=== PATIENT | male | born 1945 | race Caucasian/White ===

== ENCOUNTER 2017-03-24 10:36 | Emergency (ER) | payer MEDICARE, OTHER ==
--- NOTE | ~2017-03-24 | ER ---
PATIENT'S NAME: NANCY WISE [facility] AGE: 71 Y [address] ROOM: [place], [place] [address] LOCATION: ED ADMIT DATE: 03/24/2017 ER/Outpatient Report DISCHARGE DATE: 03/24/2017 FAMILY PHYSICIAN: PHYSICIAN, NO ATTENDING PHYSICIAN: Beatrice Zaragoza TIME OF PATIENT ARRIVAL: 1036 hours. TIME OF PATIENT EVALUATION: 1100 hours. CHIEF COMPLAINT: Headache. HISTORY OF PRESENT ILLNESS: This is a 71-year-old male who presents to the ER. He states that he has been having radiating burning pain at the back of his left side of his scalp. The patient states he noticed it approximately 4 days ago. He states, around the same time, he was on his horse, and she did a 360-degree spin to get away from a cow. He states that then he had some neck discomfort from that. He did follow up with a chiropractor in which he had some adjustments done. Now, his neck feels fine, but he is still having the pain that shoots burning pains up the left side of his scalp. He has had no fever or chills. No cough or shortness of breath. No visual disturbance. The patient also noticed a rash to the left side of his chest, and he has a few to the back of his shoulder that he just assumed that he got bit by some bugs. He noticed the rash a day to 2 days ago. He denies any other problems at this time. ALLERGIES: NO KNOWN ALLERGIES. MEDICATIONS: Please see medication list, nurse's notes. PAST MEDICAL HISTORY: Hypertension. SOCIAL HISTORY: Drinks alcohol rarely. REVIEW OF SYSTEMS: A 10-point review of systems was completed and was negative with the exception of those discussed in the HPI. PATIENT'S NAME: NANCY WISE [facility] AGE: 71 Y [address] ROOM: [place], [place] [address] LOCATION: ED ADMIT DATE: 03/24/2017 ER/Outpatient Report DISCHARGE DATE: 03/24/2017 FAMILY PHYSICIAN: PHYSICIAN, ANITHA ATTENDING PHYSICIAN: Beatrice Zaragoza PHYSICAL EXAMINATION: VITAL SIGNS: Weight 87.7 kg taken, blood pressure is 144/93, pulse 72, respirations 16, temperature 96.2 degrees tympanically, and saturations 96% on room air. Acosta Coma Score is 15. GENERAL: Alert, well-developed male in no acute distress. HEENT. Head: Normocephalic. Eyes: Pupils are equal and reactive to light. Ears: TMs display good light reflexes bilaterally. Auditory canals clear. He does display moist mucous membranes. LUNGS: Clear to auscultation. HEART: Regular rate and rhythm. EXTREMITIES: No clubbing or cyanosis. He does have full range of motion of all limbs. SKIN: He has an erythematic vesicular-type rash to the anterior aspect of the left chest wall. He has a few spots that travel the same dermatomal pattern on his back. MUSCULOSKELETAL: He has full range of motion of all of his limbs and neck. LABORATORY AND X-RAY DATA: None were done. IMPRESSION: 1. Burning, headache-type pain to the left posterior scalp. 2. Shingles on left chest wall. ASSESSMENT AND PLAN: I did discuss the patient's care with Dr. Zaragoza. Dr. Zaragoza also evaluated the patient. We did give the patient 2 Edwall here in the emergency room for his pain. We will dismiss the patient to home with prescriptions for acyclovir, Edwall, and Neurontin to use as directed. He is to monitor his symptoms closely. Advised him to take a stool softener if he is taking the pain medication, and he needs to continue to push fluids. He needs to follow up with his primary care physician if he is not improving. The patient understands and agrees with care. ELIZABETH LOZANO PA-C FOR MD YOLANDA AGUILAR/ata /[id number] d: 03/24/17 1632 t: 03/27/17 0642, OUTPATIENT REPORT
== END 2017-03-24 11:37 | disposition disaster alternative care site (69) ==
LOC: GMED 10:36
DX: R51 Headache (principal); B02.9 Zoster without complications; I10 Essential (primary) hypertension; Z79.899 Other long term (current) drug therapy